=== PATIENT | male | born 1950 | race African-American/Black ===

== ENCOUNTER 2018-06-26 12:44 | Inpatient (IN) | payer OTHER ==
[2018-06-26] VITALS (22 sets, daily range): BP systolic 63–107; BP diastolic 46–74
[~2018-06-26] VITALS: Ht 185.4 cm; Wt 119.7 kg
[2018-06-26] MEDS ORDERED: NALOXONE HCL 1 MG/ML 2ML VIAL ONE (13:09)
[2018-06-26] MEDS ORDERED: LORAZEPAM 2MG/ML CPJ IV STA (13:17)
[2018-06-26] MEDS ORDERED: PROPOFOL 10MG/ML 100ML 100 ML IV ONE ×2 (13:30→18:02)
[2018-06-26] MEDS ORDERED: ETOMIDATE 2MG/ML 10ML VIAL IV ONE ×2 (13:30→14:59)
[2018-06-26] MEDS ORDERED: NALOXONE HCL 0.4 MG/ML 1ML VIAL IV PRN (13:30)
[2018-06-26] MEDS ORDERED: ROCURONIUM BROMIDE 10MG/ML VIAL 5ML IV ONE (13:30)
[2018-06-26 14:07] LABS: CLARITY URINE CLEAR (CLEAR); COLOR URINE DARK YELLOW (YELLOW); KETONES URINE NEGATIVE (NEGATIVE); LEUKOCYTE ESTERASE URINE NEGATIVE (NEGATIVE); NITRITE URINE NEGATIVE (NEGATIVE); OCCULT BLOOD URINE NEGATIVE (NEGATIVE); PROTEIN URINE 1+ (NEGATIVE)
[2018-06-26 14:22] LABS: BASOPHILS % 0.2 % (0.0-2.0); HEMATOCRIT. 43.7 % (42.0-52.0); HEMOGLOBIN. 13.8 g/dL (14.0-18.0); LYMPHOCYTES % 7.5 % (20.0-50.0); MEAN CORPUSCULAR HEMOGLOBIN 24.8 pg (28.0-32.0); MEAN CORPUSCULAR VOLUME 78.6 fL (80.0-94.0); MEAN PLATELET VOLUME 7.8 fl (7.4-10.4); MONOCYTES % 12.7 % (2.0-8.0); NEUTROPHILS % 79.6 % (40.0-76.0); PLATELET 233 x1000/uL (130-400); RED BLOOD CELL COUNT 5.56 mill/uL (4.7-6.1); RED CELL DISTRIBUTION WIDTH 16.9 % (11.6-14.6)
[2018-06-26 14:28] LABS: CHLORIDE 100 mEq/L (98-107)
[2018-06-26 14:32] LABS: *AMPHETAMINES SCREEN URINE NEGATIVE (NEGATIVE); *BARBITURATES SCREEN URINE NEGATIVE (NEGATIVE); *BENZODIAZEPINES SCREEN URINE NEGATIVE (NEGATIVE); *COCAINE SCREEN URINE NEGATIVE (NEGATIVE); CANNABINOID URINE SCREEN PRESUMTIVE POSITIVE (NEGATIVE); OPIATES URINE SCREEN PRESUMTIVE POSITIVE (NEGATIVE); PHENCYCLIDINE URINE SCREEN NEGATIVE (NEGATIVE)
[2018-06-26 14:33] LABS: METHADONE URINE SCREEN NEGATIVE (NEGATIVE)
[2018-06-26 14:33] LABS: ETHANOL BLOOD < 10 mg/dL
[2018-06-26 14:37] LABS: CREATINE KINASE 461 IU/L (39-308)
[2018-06-26 14:48] LABS: BG BASE EXCESS 5.5 mmol/L (-2.0-2.0); BG CARBOXYHEMOGLOBIN 2.9 % (0.5-1.5); BG DEOXYHEMOGLOBIN 0.4 % (0.0-5.0); BG FRACTION INSPIRED OXYGEN 100; BG HCO3 ACT 33.5 mmol/L (22.0-26.0); BG METHEMOGLOBIN 0.3 % (0.0-1.5); BG OXYGEN SATURATION 99.6 % (92.0-98.5); BG OXYHEMOGLOBIN 96.4 % (94.0-97.0); BG PCO2 63.9 mmHg (35.0-45.0); BG PH 7.337 (7.350-7.450); BG PO2 523.9 mmHg (75.0-100.0); BG SAMPLE SITE RIGHT RADIAL; BG TIDAL VOLUME(mL) 550 mL; BG TOTAL HEMOGLOBIN 14.3 g/dL (12.0-18.0); BG VENT MODE VENT - A/C; BG VENT RATE 14 set
[2018-06-26] MEDS ORDERED: VECURONIUM BROMIDE 10 MG/VIAL IV ONE (14:59)
[2018-06-26] MEDS ORDERED: IPRATROPIUM/ALBUTEROL 0.5-3(2.5)MG/3ML NEB HHN PRN (16:15)
[2018-06-26 16:30] LABS: BG BASE EXCESS 6.6 mmol/L (-2.0-2.0); BG CARBOXYHEMOGLOBIN 2.6 % (0.5-1.5); BG DEOXYHEMOGLOBIN 4.5 % (0.0-5.0); BG FRACTION INSPIRED OXYGEN 60; BG HCO3 ACT 33.7 mmol/L (22.0-26.0); BG METHEMOGLOBIN 0.3 % (0.0-1.5); BG OXYGEN SATURATION 95.4 % (92.0-98.5); BG OXYHEMOGLOBIN 92.6 % (94.0-97.0); BG PCO2 58.4 mmHg (35.0-45.0); BG PH 7.379 (7.350-7.450); BG PO2 77.4 mmHg (75.0-100.0); BG SAMPLE SITE RIGHT RADIAL; BG TIDAL VOLUME(mL) 550 mL; BG TOTAL HEMOGLOBIN 14.5 g/dL (12.0-18.0); BG VENT MODE VENT - A/C; BG VENT RATE 14 set
[2018-06-26] MEDS ORDERED: IPRATROPIUM/ALBUTEROL 0.5-3(2.5)MG/3ML NEB INH PRN (16:45)
[2018-06-26] MEDS ORDERED: LORAZEPAM 2MG/ML CPJ IV PRN (16:45)
[2018-06-26] MEDS ORDERED: DIPHENHYDRAMINE 50MG/ML VIAL IV PRN (16:45)
[2018-06-26] MEDS ORDERED: MAGNESIUM/ALUMINUM HYDROXIDE/SIMETHICONE 30ML UDC PO PRN (16:45)
[2018-06-26] MEDS ORDERED: HYDROCODONE/APAP 7.5/325MG 1 TAB TABLET PO PRN (16:45)
[2018-06-26] MEDS ORDERED: DOCUSATE SODIUM 100MG CAPSULE PO PRN (16:45)
[2018-06-26] MEDS ORDERED: ACETAMINOPHEN 325MG TABLET PO PRN (16:45)
[2018-06-26] MEDS ORDERED: ONDANSETRON HCL 4MG/2ML INJ IV PRN (16:45)
[2018-06-26] MEDS ORDERED: GUAIFENESIN 200MG/10ML SUGAR FREE UDC PO PRN (16:45)
[2018-06-26] MEDS ORDERED: PIPERACILLIN/TAZ 3.375G PREMIX 50 ML IV SCH (16:45)
[2018-06-26] MEDS ORDERED: MORPHINE SULFATE 2 MG/ML CPJ (NOT FOR IM USE) IV PRN (16:45)
[2018-06-26] MEDS: DEXT 5%/0.45% NACL 1000ML 1,000 ML IV SCH (19:04)
[2018-06-26] MEDS: PANTOPRAZOLE SODIUM 40 MG/VIAL IV SCH (19:10)
[2018-06-26] MEDS ORDERED: PROPOFOL 10MG/ML 100ML 100 ML IV PRN (20:00)
[2018-06-26] MEDS: PIPERACILLIN/TAZ 3.375G PREMIX 50 ML IV SCH (20:19)
[2018-06-26] MEDS: IPRATROPIUM/ALBUTEROL 0.5-3(2.5)MG/3ML NEB HHN SCH (20:45)
[2018-06-26] MEDS ORDERED: NOREPINEPHRINE 8 MG in DEXT 5% WATER 242 ML IV PRN (21:00)
[2018-06-26] MEDS ORDERED: VANCOMYCIN 2,000 MG in DEXT 5% WATER 500 ML IV NR (21:00)
[2018-06-26] MEDS: SODIUM CHLORIDE 0.9% INJ 3ML FLUSH IVF SCH (21:22)
[2018-06-27] VITALS (66 sets, daily range): BP systolic 87–142; BP diastolic 27–97
[2018-06-27] MEDS ORDERED: GABA-531 PO (00:34)
[2018-06-27] MEDS ORDERED: MORP15TA67 MT (00:34)
[2018-06-27] MEDS ORDERED: OXYC-515 MT (00:34)
[2018-06-27] MEDS: IPRATROPIUM/ALBUTEROL 0.5-3(2.5)MG/3ML NEB HHN SCH ×5 (00:34→16:43)
[2018-06-27] MEDS ORDERED: FURO40TA5 MT (00:34)
[2018-06-27] MEDS: PIPERACILLIN/TAZ 3.375G PREMIX 50 ML IV SCH ×5 (01:16→23:23)
[2018-06-27 05:59] LABS: BASOPHILS % 0.2 % (0.0-2.0); HEMATOCRIT. 41.2 % (42.0-52.0); HEMOGLOBIN. 13.1 g/dL (14.0-18.0); LYMPHOCYTES % 13.4 % (20.0-50.0); MEAN CORPUSCULAR HEMOGLOBIN 24.7 pg (28.0-32.0); MEAN CORPUSCULAR VOLUME 77.7 fL (80.0-94.0); MEAN PLATELET VOLUME 7.9 fl (7.4-10.4); MONOCYTES % 14.9 % (2.0-8.0); NEUTROPHILS % 71.5 % (40.0-76.0); PLATELET 165 x1000/uL (130-400); RED CELL DISTRIBUTION WIDTH 16.5 % (11.6-14.6)
[2018-06-27 06:13] LABS: CHLORIDE 100 mEq/L (98-107)
[2018-06-27] MEDS: SODIUM CHLORIDE 0.9% INJ 3ML FLUSH IVF SCH ×2 (06:23→23:21)
[2018-06-27 06:24] LABS: CREATINE KINASE 468 IU/L (39-308)
[2018-06-27 07:33] LABS: BG CARBOXYHEMOGLOBIN 0.4 % (0.5-1.5); BG DEOXYHEMOGLOBIN 1.1 % (0.0-5.0); BG HCO3 ACT 33.8 mmol/L (22.0-26.0); BG METHEMOGLOBIN 0.1 % (0.0-1.5); BG OXYGEN SATURATION 98.9 % (92.0-98.5); BG OXYHEMOGLOBIN 98.4 % (94.0-97.0); BG PCO2 51.7 mmHg (35.0-45.0); BG PH 7.433 (7.350-7.450); BG PO2 172.4 mmHg (75.0-100.0); BG SAMPLE SITE RIGHT RADIAL; BG TIDAL VOLUME(mL) 550 mL; BG TOTAL HEMOGLOBIN 13.5 g/dL (12.0-18.0); BG VENT MODE VENT - A/C; BG VENT RATE 14 set
[2018-06-27] MEDS ORDERED: ENOXAPARIN 120MG/0.8ML SYR SUBCUT SCH (08:00)
[2018-06-27] MEDS: PANTOPRAZOLE SODIUM 40 MG/VIAL IV SCH (08:52)
[2018-06-27] MEDS ORDERED: MORPHINE SULFATE 4 MG/ML CPJ (NOT FOR IM USE) IV PRN (09:43)
[2018-06-27] MEDS: PROPOFOL 10MG/ML 100ML 100 ML IV PRN ×2 (11:24→20:10)
[2018-06-27 11:38] LABS: D-DIMER 19.86 mg/L FEU (<0.50); INR 1.3; PROTHROMBIN TIME 13.3 sec (9.1-11.1)
[2018-06-27 12:04] LABS: T4 FREE 1.07 ng/dL (0.76-1.46)
[2018-06-27] MEDS: VANCOMYCIN 1250MG in DEXTROSE 5% WATER 250ML IV SCH (13:28)
[2018-06-27] MEDS ORDERED: IOHEXOL-350 100 ML BOTTLE ONE (14:05)
[2018-06-27 16:45] LABS: CREATINE KINASE MB FRACTION 3.8 ng/mL (0.5-3.6)
[2018-06-27] MEDS: DEXT 5%/0.45% NACL 1000ML 1,000 ML IV SCH (17:13)
[2018-06-27 20:16] LABS: T4 FREE 1.02 ng/dL (0.76-1.46)
[2018-06-27 20:27] LABS: FOLIC ACID (FOLATE) SERUM 12.2 ng/mL (>5.38)
[2018-06-28] VITALS (92 sets, daily range): BP systolic 105–184; BP diastolic 67–114
[2018-06-28] MEDS: IPRATROPIUM/ALBUTEROL 0.5-3(2.5)MG/3ML NEB HHN SCH ×4 (00:25→20:24)
[2018-06-28] MEDS: PROPOFOL 10MG/ML 100ML 100 ML IV PRN ×5 (01:19→21:37)
[2018-06-28] MEDS: DEXT 5%/0.45% NACL 1000ML 1,000 ML IV SCH ×2 (03:28→16:17)
[2018-06-28] MEDS: PIPERACILLIN/TAZ 3.375G PREMIX 50 ML IV SCH ×4 (05:26→23:46)
[2018-06-28] MEDS: SODIUM CHLORIDE 0.9% INJ 3ML FLUSH IVF SCH ×3 (05:26→21:26)
[2018-06-28 05:42] LABS: BASOPHILS % 0.3 % (0.0-2.0); EOSINOPHILS % 0.1 % (0.0-5.0); HEMATOCRIT. 38.3 % (42.0-52.0); HEMOGLOBIN. 12.1 g/dL (14.0-18.0); MEAN CORPUSCULAR HEMOGLOBIN 24.4 pg (28.0-32.0); MEAN PLATELET VOLUME 8.5 fl (7.4-10.4); MONOCYTES % 14.5 % (2.0-8.0); NEUTROPHILS % 71.1 % (40.0-76.0); PLATELET 152 x1000/uL (130-400); RED BLOOD CELL COUNT 4.97 mill/uL (4.7-6.1); RED CELL DISTRIBUTION WIDTH 16.3 % (11.6-14.6)
[2018-06-28 05:46] LABS: INR 1.2; PROTHROMBIN TIME 12.1 sec (9.1-11.1)
[2018-06-28 06:01] LABS: CHLORIDE 100 mEq/L (98-107)
[2018-06-28] MEDS: VANCOMYCIN 1250MG in DEXTROSE 5% WATER 250ML IV SCH (06:03)
[2018-06-28 06:21] LABS: CREATINE KINASE 188 IU/L (39-308)
[2018-06-28 06:23] LABS: CREATINE KINASE MB FRACTION 2.3 ng/mL (0.5-3.6)
[2018-06-28 07:51] LABS: BG BASE EXCESS 7.3 mmol/L (-2.0-2.0); BG CARBOXYHEMOGLOBIN 0.4 % (0.5-1.5); BG DEOXYHEMOGLOBIN 1.1 % (0.0-5.0); BG HCO3 ACT 32.2 mmol/L (22.0-26.0); BG METHEMOGLOBIN 0.1 % (0.0-1.5); BG OXYGEN SATURATION 98.9 % (92.0-98.5); BG OXYHEMOGLOBIN 98.4 % (94.0-97.0); BG PCO2 46.7 mmHg (35.0-45.0); BG PH 7.457 (7.350-7.450); BG PO2 159.3 mmHg (75.0-100.0); BG SAMPLE SITE RIGHT RADIAL; BG TIDAL VOLUME(mL) 550 mL; BG VENT MODE VENT - A/C; BG VENT RATE 14 set
[2018-06-28] MEDS: PANTOPRAZOLE SODIUM 40 MG/VIAL IV SCH (09:00)
[2018-06-28] MEDS ORDERED: HYDRALAZINE HCL 25MG TABLET NG PRN (10:15)
[2018-06-28] MEDS ORDERED: NICARDIPINE 50 MG in SODIUM CHLORIDE 0.9% 230 ML IV PRN (13:00)
[2018-06-28] MEDS: HYDRALAZINE HCL 25MG TABLET NG PRN (19:32)
[2018-06-28] MEDS: CLONIDINE 0.1MG TABLET PO PRN (21:23)
[2018-06-28] MEDS ORDERED: IOHEXOL-350 100 ML BOTTLE ONE (23:02)
[2018-06-29] VITALS (66 sets, daily range): BP systolic 117–169; BP diastolic 79–109
[2018-06-29] MEDS: VANCOMYCIN 1250MG in DEXTROSE 5% WATER 250ML IV SCH ×2 (00:24→17:02)
[2018-06-29] MEDS: IPRATROPIUM/ALBUTEROL 0.5-3(2.5)MG/3ML NEB HHN SCH ×5 (01:16→21:02)
[2018-06-29] MEDS: CLONIDINE 0.1MG TABLET PO PRN ×2 (02:52→08:42)
[2018-06-29] MEDS: HYDRALAZINE HCL 25MG TABLET NG PRN (02:52)
[2018-06-29] MEDS: PROPOFOL 10MG/ML 100ML 100 ML IV PRN ×3 (03:05→18:11)
[2018-06-29] MEDS: SODIUM CHLORIDE 0.9% INJ 3ML FLUSH IVF SCH ×3 (05:04→22:00)
[2018-06-29] MEDS: DEXT 5%/0.45% NACL 1000ML 1,000 ML IV SCH (05:04)
[2018-06-29] MEDS: PIPERACILLIN/TAZ 3.375G PREMIX 50 ML IV SCH ×4 (05:04→23:42)
[2018-06-29 05:31] LABS: BASOPHILS % 0.1 % (0.0-2.0); HEMATOCRIT. 42.6 % (42.0-52.0); HEMOGLOBIN. 13.4 g/dL (14.0-18.0); MEAN CORPUSCULAR HEMOGLOBIN 24.1 pg (28.0-32.0); MEAN CORPUSCULAR VOLUME 76.3 fL (80.0-94.0); MEAN PLATELET VOLUME 8.4 fl (7.4-10.4); MONOCYTES % 12.4 % (2.0-8.0); NEUTROPHILS % 79.5 % (40.0-76.0); PLATELET 149 x1000/uL (130-400); RED BLOOD CELL COUNT 5.58 mill/uL (4.7-6.1); RED CELL DISTRIBUTION WIDTH 16.5 % (11.6-14.6)
[2018-06-29 07:48] LABS: BG BASE EXCESS 2.9 mmol/L (-2.0-2.0); BG DEOXYHEMOGLOBIN 1.3 % (0.0-5.0); BG FRACTION INSPIRED OXYGEN 40; BG HCO3 ACT 27.7 mmol/L (22.0-26.0); BG METHEMOGLOBIN 0.2 % (0.0-1.5); BG OXYGEN SATURATION 98.7 % (92.0-98.5); BG OXYHEMOGLOBIN 97.5 % (94.0-97.0); BG PCO2 43.4 mmHg (35.0-45.0); BG PH 7.423 (7.350-7.450); BG PO2 140.7 mmHg (75.0-100.0); BG SAMPLE SITE RIGHT RADIAL; BG TIDAL VOLUME(mL) 550 mL; BG VENT MODE VENT - A/C; BG VENT RATE 12 set
[2018-06-29] MEDS: PANTOPRAZOLE SODIUM 40 MG/VIAL IV SCH (08:42)
[2018-06-29] MEDS ORDERED: SODIUM CHLORIDE 0.9% 500 ML IV ONE (11:15)
[2018-06-30] VITALS (45 sets, daily range): BP systolic 100–135; BP diastolic 64–92
[2018-06-30] MEDS: IPRATROPIUM/ALBUTEROL 0.5-3(2.5)MG/3ML NEB HHN SCH ×7 (01:00→20:10)
[2018-06-30] MEDS: PROPOFOL 10MG/ML 100ML 100 ML IV PRN ×2 (01:53→12:03)
[2018-06-30] MEDS: PIPERACILLIN/TAZ 3.375G PREMIX 50 ML IV SCH ×4 (05:16→23:29)
[2018-06-30] MEDS: ENOXAPARIN 120MG/0.8ML SYR SUBCUT SCH ×2 (08:43→21:00)
[2018-06-30] MEDS: DEXT 5%/0.45% NACL 1000ML 1,000 ML IV SCH (10:03)
[2018-06-30] MEDS: PANTOPRAZOLE SODIUM 40 MG/VIAL IV SCH (10:03)
[2018-06-30 10:39] LABS: INR 1.2; PARTIAL THROMBOPLASTIN TIME 30.6 sec (23.4-31.0)
[2018-06-30] MEDS: SODIUM CHLORIDE 0.9% INJ 3ML FLUSH IVF SCH ×2 (14:10→21:32)
[2018-06-30] MEDS ORDERED: PROPOFOL 10MG/ML 100ML 100 ML IV PRN (19:25)
[2018-07-01] VITALS (45 sets, daily range): BP systolic 98–126; BP diastolic 61–81
[2018-07-01] MEDS: IPRATROPIUM/ALBUTEROL 0.5-3(2.5)MG/3ML NEB HHN SCH ×6 (00:39→19:56)
[2018-07-01] MEDS: SODIUM CHLORIDE 0.9% INJ 3ML FLUSH IVF SCH ×3 (05:14→21:24)
[2018-07-01] MEDS: PIPERACILLIN/TAZ 3.375G PREMIX 50 ML IV SCH ×2 (05:14→12:13)
[2018-07-01 06:09] LABS: HEMOGLOBIN. 11.6 g/dL (14.0-18.0); MEAN CORPUSCULAR HEMOGLOBIN 24.7 pg (28.0-32.0); MEAN CORPUSCULAR VOLUME 76.5 fL (80.0-94.0); MEAN PLATELET VOLUME 9.1 fl (7.4-10.4); PLATELET 123 x1000/uL (130-400); RED BLOOD CELL COUNT 4.71 mill/uL (4.7-6.1); RED CELL DISTRIBUTION WIDTH 17.1 % (11.6-14.6)
[2018-07-01 10:34] LABS: PLATELET ESTIMATE SLIGHTLY DECREASED
[2018-07-01] MEDS: PANTOPRAZOLE SODIUM 40 MG/VIAL IV SCH (11:58)
[2018-07-01] MEDS: PROPOFOL 10MG/ML 100ML 100 ML IV PRN (14:28)
[2018-07-01] MEDS ORDERED: PROPOFOL 10MG/ML 100ML 100 ML IV PRN (14:30)
[2018-07-01] MEDS: PIPERACILLIN/TAZ 2.25G PREMIX 50 ML IV SCH (21:13)
[2018-07-02] VITALS (49 sets, daily range): BP systolic 110–137; BP diastolic 55–88
[2018-07-02] MEDS: IPRATROPIUM/ALBUTEROL 0.5-3(2.5)MG/3ML NEB HHN SCH ×6 (00:30→19:56)
[2018-07-02] MEDS: PIPERACILLIN/TAZ 2.25G PREMIX 50 ML IV SCH ×3 (05:49→19:38)
[2018-07-02] MEDS: SODIUM CHLORIDE 0.9% INJ 3ML FLUSH IVF SCH ×2 (05:49→14:39)
[2018-07-02] MEDS: PROPOFOL 10MG/ML 100ML 100 ML IV PRN (06:08)
[2018-07-02 06:34] LABS: HEMATOCRIT. 34.4 % (42.0-52.0); MEAN CORPUSCULAR HEMOGLOBIN 24.1 pg (28.0-32.0); MEAN CORPUSCULAR VOLUME 75.5 fL (80.0-94.0); MEAN PLATELET VOLUME 8.8 fl (7.4-10.4); PLATELET 160 x1000/uL (130-400); RED BLOOD CELL COUNT 4.56 mill/uL (4.7-6.1); RED CELL DISTRIBUTION WIDTH 16.6 % (11.6-14.6)
[2018-07-02 08:05] LABS: BG BASE EXCESS -0.6 mmol/L (-2.0-2.0); BG CARBOXYHEMOGLOBIN 0.5 % (0.5-1.5); BG DEOXYHEMOGLOBIN 2.3 % (0.0-5.0); BG FRACTION INSPIRED OXYGEN 40; BG METHEMOGLOBIN 0.1 % (0.0-1.5); BG OXYGEN SATURATION 97.7 % (92.0-98.5); BG OXYHEMOGLOBIN 97.1 % (94.0-97.0); BG PCO2 44.8 mmHg (35.0-45.0); BG PH 7.364 (7.350-7.450); BG PO2 106.9 mmHg (75.0-100.0); BG SAMPLE SITE RIGHT RADIAL; BG TIDAL VOLUME(mL) 550 mL; BG TOTAL HEMOGLOBIN 11.6 g/dL (12.0-18.0); BG VENT MODE VENT - A/C; BG VENT RATE 12 set
[2018-07-02 08:12] LABS: PLATELET ESTIMATE NORMAL
[2018-07-02] MEDS ORDERED: ENOXAPARIN 120MG/0.8ML SYR SUBCUT SCH (09:00)
[2018-07-02] MEDS ORDERED: HEPARIN SODIUM 1,000 UNIT/1ML VIAL IV NR (09:30)
[2018-07-02] MEDS: PANTOPRAZOLE SODIUM 40 MG/VIAL IV SCH (11:12)
[2018-07-02] MEDS ORDERED: PROPOFOL 10MG/ML 100ML 100 ML IV PRN (16:45)
== END 2018-07-02 21:45 | disposition short-term general hospital (02) | DRG 870 ==
LOC: ER 14:06 → EDBD 15:01 → MICUSO 15:01 → EDBEDREQ 15:13 → ENRESERV 16:03 → EDBEDREQ 16:58
PROVIDERS: ADMIT Internal Medicine; ATTEND Internal Medicine
PROC: 5A1955Z Respiratory Ventilation, Greater than 96 Consecutive Hours (ICD-10-PCS; principal; 2018-06-26)
PROC: 0BH17EZ Insertion of Endotracheal Airway into Trachea, Via Natural or Artificial Opening (ICD-10-PCS; 2018-06-26)
PROC: 0CJS8ZZ Inspection of Larynx, Via Natural or Artificial Opening Endoscopic (ICD-10-PCS; 2018-06-26)
PROC: 02HV33Z Insertion of Infusion Device into Superior Vena Cava, Percutaneous Approach (ICD-10-PCS; 2018-06-27)
PROC: B548ZZA Ultrasonography of Superior Vena Cava, Guidance (ICD-10-PCS; 2018-06-27)
PROC: 02HV33Z Insertion of Infusion Device into Superior Vena Cava, Percutaneous Approach (ICD-10-PCS; 2018-06-30)
PROC: B548ZZA Ultrasonography of Superior Vena Cava, Guidance (ICD-10-PCS; 2018-06-30)
PROC: 5A1D70Z Performance of Urinary Filtration, Intermittent, Less than 6 Hours Per Day (ICD-10-PCS; 2018-06-30)
PROC: 5A1D70Z Performance of Urinary Filtration, Intermittent, Less than 6 Hours Per Day (ICD-10-PCS; 2018-07-01)
DX: A41.9 Sepsis, unspecified organism (principal); I21.4 Non-ST elevation (NSTEMI) myocardial infarction; J96.00 Acute respiratory failure, unspecified whether with hypoxia or hypercapnia; J69.0 Pneumonitis due to inhalation of food and vomit; G92 Toxic encephalopathy; N17.0 Acute kidney failure with tubular necrosis; I63.512 Cerebral infarction due to unspecified occlusion or stenosis of left middle cerebral artery; I26.99 Other pulmonary embolism without acute cor pulmonale; I50.33 Acute on chronic diastolic (congestive) heart failure; D68.59 Other primary thrombophilia; I13.0 Hypertensive heart and chronic kidney disease with heart failure and stage 1 through stage 4 chronic kidney disease, or unspecified chronic kidney disease; I82.432 Acute embolism and thrombosis of left popliteal vein; F11.90 Opioid use, unspecified, uncomplicated; E86.0 Dehydration; E11.22 Type 2 diabetes mellitus with diabetic chronic kidney disease; F12.90 Cannabis use, unspecified, uncomplicated; I27.20 Pulmonary hypertension, unspecified; I35.0 Nonrheumatic aortic (valve) stenosis; J44.9 Chronic obstructive pulmonary disease, unspecified; N18.9 Chronic kidney disease, unspecified; Z85.46 Personal history of malignant neoplasm of prostate; Z90.79 Acquired absence of other genital organ(s); Z99.2 Dependence on renal dialysis; Z78.1 Physical restraint status
CPT/HCPCS: 36415; 36556; 36569; 36600; 70496; 70498; 70551; 71045; 71275; 73030; 76937; 80048; 80061; 80202; 80305; 80307; 80329; 82140; 82375; 82550; 82553; 82607; 82746; 82805; 83036; 83605; 83880; 84439; 84443; 84478; 84481; 84484; 85379; 87070; 87077; 87186; 87804; 93005; 93306; 93970; 94002; 94003; 94640; 96374; 99285; C1725; C1752; C1769; C9113; G0482; J1644; J1650; J2270; J2310; J2543; J2704; J3370; J3490; J7040; J7050; J7060; J7620; Q9967